=== PATIENT | male | born 1960 | race Two or more races ===

== ENCOUNTER 2019-09-05 12:00 | Inpatient (IN) | payer MEDICAID ==
[~2019-09-05] VITALS: Ht 167.6 cm; Wt 83.9 kg
[2019-09-05 12:21] VITALS: BP 150/70
--- NOTE | 2019-09-05 12:23 | NUR ---
ED Nurse Note: Patient walked in to ER from Dr. Molina's office due to rectal pain 06/12 since yesterday. pt went to Dr. Molina's office for evaluation but the doctor recommanded pt to come in to ER due to lack of equipments there. pt aao x4 and ambulatory. no visible abscess noted in rectal area. pt calm and cooperative. skin clean and intact. no cardiac or pulmonary distress noted at this moment. pt is in gown and on supervisor plastics.
[2019-09-05] MEDS ORDERED: ATORVASTATIN CA80 MG ORAL (12:32)
[2019-09-05] MEDS ORDERED: GLIMEPIRIDE4 MG ORAL (12:32)
[2019-09-05] MEDS ORDERED: JENTADUETO 2.51 EAC2 PO (12:32)
[2019-09-05] MEDS ORDERED: FARXIGA10 MG PO (12:32)
[2019-09-05] MEDS ORDERED: LISINOPRIL5 MG ORAL (12:32)
--- NOTE | 2019-09-05 12:49 | NUR ---
ED Nurse Note: ERMD at bedside.
[2019-09-05] MEDS ORDERED: Omnipaque-300 100ml vial INJ PRN (13:00)
[2019-09-05] MEDS ORDERED: Morphine Sulfate 4mg/ml Inj (IV USE ONLY) IVP ONE ×2 (13:00→13:45)
[2019-09-05 13:14] LABS: BASOPHILS % (AUTO) 0.5 % (0.0-2.0); EOSINOPHILS % (AUTO) 0.3 % (0.0-3.0); HEMATOCRIT 43.6 % (42.0-52.0); HEMOGLOBIN 14.7 G/DL (14.2-18.0); LYMPHOCYTES % (AUTO) 9.5 % (20.0-45.0); MEAN CORPUSCULAR VOLUME 91 FL (80-99); MONOCYTES % (AUTO) 5.7 % (1.0-10.0); PLATELET COUNT 191 K/UL (150-450); RED CELL DISTRIBUTION WIDTH 10.8 % (11.6-14.8); WHITE BLOOD COUNT 11.6 K/UL (4.8-10.8)
[2019-09-05 13:20] LABS: INR 0.9 (0.9-1.1)
[2019-09-05 13:25] LABS: ANION GAP 11 mmol/L (5-15); BLOOD UREA NITROGEN 16 mg/dL (7-18); CALCIUM 8.6 MG/DL (8.5-10.1); CARBON DIOXIDE 27 MMOL/L (21-32); CHLORIDE 100 MMOL/L (98-107); CREATININE 0.8 MG/DL (0.55-1.30); POTASSIUM 3.9 MMOL/L (3.5-5.1); SODIUM 138 MMOL/L (136-145)
[2019-09-05 13:38] LABS: ALANINE AMINOTRANSFERASE 73 U/L (12-78); ALBUMIN 3.3 G/DL (3.4-5.0); ALBUMIN/GLOBULIN RATIO 0.8 (1.0-2.7); ALKALINE PHOSPHATASE 124 U/L (46-116); ASPARTATE AMINO TRANSFERASE 18 U/L (15-37); BILIRUBIN,TOTAL 0.8 MG/DL (0.2-1.0); CREATINE KINASE 83 U/L (26-308)
--- NOTE | 2019-09-05 13:38 | Diagnostic Imaging Report ---
Indication: Wrist pain Technique: XRAY Chest 1v Comparison: None Findings: Lung volumes are low. Patient is rotated to the right. Heart size and mediastinal contours within normal limits allowing for low lung volumes and patient rotation. There is streaky opacities at the bases favored to be related to expiratory atelectatic changes. No radiographically appreciable pleural effusion or pneumothorax. There are degenerative changes in the spine. No acute osseous abnormality. Impression: Low lung volumes with streaky opacities at the bases favored to be related to atelectatic changes. Correlate clinically to exclude the possibility of pneumonia.
--- NOTE | 2019-09-05 13:40 | Emergency Room Report ---
History of Present Illness General Chief Complaint: Skin Rash/Abscess Source: Patient Present Illness HPI Patient presents with several days of rectal pain. He has had fevers and chills. He is having difficulty moving his bowels because of the pain. He denies dysuria. No upper respiratory symptoms or cough. He denies chest pain. The patient was seen by his primary physician and sent for consideration of perirectal abscess. He denies perineal pain. The pain is rated 10/10 in his rectum. It radiates minimally to his abdomen. It is constant but worse when he tries to move his bowels. It is aching and pressure. The patient is diabetic and has some polyuria and polydipsia. History of hypertension. The patient denies skin rashes. Allergies: Coded Allergies: No Known Allergies (Unverified , 09/05/19) Patient History Past Medical History: see triage record Social History: Denies: smoking, alcohol use, drug use Social History Narrative Reviewed Nursing Documentation: PMH: Agreed; PSxH: Agreed Nursing Documentation-PMH Past Medical History: No History, Except For Hx Diabetes: Yes Review of Systems All Other Systems: negative except mentioned in HPI Physical Exam Vital Signs Date Time Temp Pulse Resp B/P (MAP) Pulse Ox O2 Delivery O2 Flow Rate FiO2 09/05/19 12:09 98.4 80 17 141/79 (99) 98 Room Air Sp02 EP Interpretation: reviewed, normal General Appearance: well appearing, no apparent distress, GCS 15, non-toxic Head: normocephalic Eyes: bilateral eye normal inspection, bilateral eye PERRL ENT: moist mucus membranes Neck: supple Respiratory: lungs clear, normal breath sounds Cardiovascular #1: regular rate, rhythm Cardiovascular #2: 2+ radial (R) Gastrointestinal: normal inspection, normal bowel sounds, non tender, no mass, non-distended Rectal: other - no prostate pain Genitourinary: no CVA tenderness Musculoskeletal: back normal, normal range of motion, gait/station normal Neurologic: alert, oriented x3, grossly normal Psychiatric: mood/affect normal Skin: no rash, warm/dry Medical Decision Making Diagnostic Impression: Primary Impression: Perirectal abscess Additional Impression: Diabetes Qualified Codes: E11.9 - Type 2 diabetes mellitus without complications; Z79.4 - intermediate project manager (current) use of insulin ER Course Patient presents with rectal pain with history of physical and chills. Based on his exam clinically has perirectal abscess. NS, pain medicine and antibiotics indicated. EKG normal. CXR no infiltrate. Elevated WBC. Elevated glucose. CT with perianal abscess. Repeat morphine. Repeat accucheck after bolus. Pain improved with treatment. Discussed results and treatment plan with family and patient. Contact Dr. Tyson and Elder for admission and consultation. Laboratory Tests Test 09/05/19 13:00 09/05/19 13:24 White Blood Count 11.6 K/UL (4.8-10.8) H Red Blood Count 4.80 M/UL (4.70-6.10) Hemoglobin 14.7 G/DL (14.2-18.0) Hematocrit 43.6 % (42.0-52.0) Mean Corpuscular Volume 91 FL (80-99) Mean Corpuscular Hemoglobin 30.6 PG (27.0-31.0) Mean Corpuscular Hemoglobin Concent 33.7 G/DL (32.0-36.0) Red Cell Distribution Width 10.8 % (11.6-14.8) L Platelet Count 191 K/UL (150-450) Mean Platelet Volume 10.0 FL (6.5-10.1) Neutrophils (%) (Auto) 84.0 % (45.0-75.0) H Lymphocytes (%) (Auto) 9.5 % (20.0-45.0) L Monocytes (%) (Auto) 5.7 % (1.0-10.0) Eosinophils (%) (Auto) 0.3 % (0.0-3.0) Basophils (%) (Auto) 0.5 % (0.0-2.0) Prothrombin Time 10.0 SEC (9.30-11.50) Prothrombin Time INR 0.9 (0.9-1.1) PTT 28 SEC (23-33) Sodium Level 138 MMOL/L (136-145) Potassium Level 3.9 MMOL/L (3.5-5.1) Chloride Level 100 MMOL/L (98-107) Carbon Dioxide Level 27 MMOL/L (21-32) Anion Gap 11 mmol/L (5-15) Blood Urea Nitrogen 16 mg/dL (7-18) Creatinine 0.8 MG/DL (0.55-1.30) Estimate Glomerular Filtration Rate > 60 mL/min (>60) Glucose Level 322 MG/DL (74-106) H Lactic Acid Level 1.80 mmol/L (0.4-2.0) Calcium Level 8.6 MG/DL (8.5-10.1) Total Bilirubin 0.8 MG/DL (0.2-1.0) Aspartate Amino Transferase (AST) 18 U/L (15-37) Alanine Aminotransferase (ALT) 73 U/L (12-78) Alkaline Phosphatase 124 U/L (46-116) H Total Creatine Kinase 83 U/L (26-308) Troponin I 0.000 ng/mL (0.000-0.056) Pro-B-Type Natriuretic Peptide 376 pg/mL (0-125) H Total Protein 7.7 G/DL (6.4-8.2) Albumin 3.3 G/DL (3.4-5.0) L Globulin 4.4 g/dL Albumin/Globulin Ratio 0.8 (1.0-2.7) L Lipase 178 U/L (73-393) Urine Color Pale yellow Urine Appearance Clear Urine pH 6.5 (4.5-8.0) Urine Specific [place] 1.005 (1.005-1.035) Urine Protein Negative (NEGATIVE) Urine Glucose (UA) 4+ (NEGATIVE) H Urine Ketones Negative (NEGATIVE) Urine Blood Negative (NEGATIVE) Urine Nitrite Negative (NEGATIVE) Urine Bilirubin Negative (NEGATIVE) Urine Urobilinogen Normal MG/DL (0.0-1.0) Urine Leukocyte Esterase Negative (NEGATIVE) EKG Diagnostic Results Rate: normal Rhythm: NSR ST Segments: no acute changes Rhythm Strip Diag. Results EP Interpretation: yes Rhythm: NSR, no PVC's, no ectopy Chest X-Ray Diagnostic Results Chest X-Ray Diagnostic Results : Chest X-Ray Ordered: Yes # of Views/Limited/Complete: 1 View Indication: Other EP Interpretation: Yes Interpretation: no consolidation, no effusion, no pneumothorax Impression: No acute disease Electronically Signed by: Electronically signed by Roman Messer MD CT/MRI/US Diagnostic Results CT/MRI/US Diagnostic Results : Imaging Test Ordered: abd/pelvis Impression * Perianal abscess measuring approximately 1.7 x 1.9 x 1.5 cm. Etiology is uncertain (recognized associations include diabetes, Crohn's disease, trauma, anorectal cancer). Clinical correlation and follow-up recommended. * 2.5 x 1.7 cm heterogeneously enhancing solid mass in the right kidney. Renal cell carcinoma can be considered. Urology consult/follow-up recommended. Last Vital Signs Date Time Temp Pulse Resp B/P (MAP) Pulse Ox O2 Delivery O2 Flow Rate FiO2 09/05/19 21:35 Room Air 09/05/19 21:20 100.0 09/05/19 20:49 74 18 127/84 (98) 97 Status: improved Disposition: ADMITTED INPATIENT Condition: Serious Referrals: NOT CHOSEN IPA/,REFERRING (PCP) Roman Messer MD Sep 05, 2019 13:40
[2019-09-05] MEDS ORDERED: Vancomycin 1 GM in NS 275 ML IVPB ONE ×2 (13:45→14:15)
[2019-09-05 13:52] LABS: APPEARANCE,URINE CLEAR; BILIRUBIN, URINE NEGATIVE (NEGATIVE); COLOR,URINE PALE YELLOW; GLUCOSE, URINE (UA) 4+ (NEGATIVE); KETONES,URINE NEGATIVE (NEGATIVE); LEUKOCYTE ESTERASE ,URINE NEGATIVE (NEGATIVE); NITRITE,URINE NEGATIVE (NEGATIVE); PH,URINE 6.5 (4.5-8.0); PROTEIN,URINE NEGATIVE (NEGATIVE); UROBILINOGEN,URINE NORMAL MG/DL (0.0-1.0)
--- NOTE | 2019-09-05 13:52 | NUR ---
ED Nurse Note: Pt still in 8/10 pain after 4 mg morphine. EDMD ordered second dose; verified with EDMD that it was safe to give. Administered medication. Vital signs stable as documented. Pt in CT.
--- NOTE | 2019-09-05 14:10 | NUR ---
ED Nurse Note: Pt back from CT
--- NOTE | 2019-09-05 14:49 | NUR ---
ED Nurse Note: Report given to TOD Morales on 4E
--- NOTE | 2019-09-05 14:57 | Diagnostic Imaging Report ---
Indication: Elbow pain. Possible perirectal or perianal abscess. Technique: CT of the abdomen and pelvis utilizing automated exposure control with intravenous contrast. Venous scanning performed. Axial, sagittal and coronal reformats presented. CT dose: Total DLP 1700.8 mGycm; CTDI vol 24.2 mGy Comparison: None Findings: Dependent atelectatic changes noted in the lung bases. Partially imaged heart appears normal in size. There is no pericardial effusion. Liver contour is smooth. No focal hepatic mass lesion appreciated on this single phase exam. Hepatic veins and portal veins appear patent. There are no CT evident gallstones or pericholecystic inflammatory changes. No biliary ductal dilatation. Spleen, adrenal glands and pancreas unremarkable in appearance. No peripancreatic inflammatory changes or fluid collections. Multiple well-circumscribed low-attenuation lesions are noted in the bilateral kidneys compatible with cysts. Additional lesions are too small for definitive characterization. There is a parapelvic cyst in the left kidney. Within the right kidney there is a 2.5 x 1.7 cm heterogeneously enhancing solid mass which deforms the contour. This is concerning for a neoplasm. Renal cell carcinoma is not excluded. Urology referral/follow-up recommended. There is no urinary tract stone or hydronephrosis. Bladder is mildly distended but otherwise unremarkable. Seminal vesicles and prostate grossly unremarkable. There is no free intraperitoneal air or fluid. There is no evidence of small bowel obstruction or inflammatory stranding within the mesentery. The appendix is normal. No periappendiceal inflammatory stranding. Adjacent to the anus there is a small septated fluid collection which measures approximately 1.7 cm craniocaudal by 1.9 cm transverse by 1.5 cm AP (coronal series image #47). There is adjacent inflammatory stranding. The abdominal aorta is normal in caliber. No pathologically enlarged lymphadenopathy is identified. There are mild degenerative changes of the spine. No acute fracture is identified. No destructive lytic or sclerotic bone lesion is seen. IMPRESSION: * Perianal abscess measuring approximately 1.7 x 1.9 x 1.5 cm. Etiology is uncertain (recognized associations include diabetes, Crohn's disease, trauma, anorectal cancer). Clinical correlation and follow-up recommended. * 2.5 x 1.7 cm heterogeneously enhancing solid mass in the right kidney. Renal cell carcinoma can be considered. Urology consult/follow-up recommended. Additional findings as above. The CT scanner at [facility] is accredited by the [employer] and the scans are performed using protocols designed to limit radiation exposure to as low as reasonably achievable to attain images of sufficient resolution adequate for diagnostic evaluation.
--- NOTE | 2019-09-05 15:13 | NUR ---
ED Nurse Note: Patient and wish to speak to doctor regarding admission. ARLENE made aware.
--- NOTE | 2019-09-05 15:28 | NUR ---
ED Nurse Note: pt left unit with 1 technical programs manager in stable condition.
--- NOTE | 2019-09-05 16:02 | NUR ---
NURSE NOTES: pt awake alert, oriented, pashto speaking , limited romanian, sacral intact, pt seen by dr Tyson and dr Friedman. made aware of 100.1 temp at this time. pt currently on vanco at this time. rac 20 intact. pt ambulatory , continent. Addendum: 09/05/19 at 1604 by ALLEN CHIANG RN per dr Tyson he will put orders in
[2019-09-05 16:03] VITALS: BP 145/75
[2019-09-05] MEDS ORDERED: Miralax 17gm pkt ORAL PRN (16:15)
[2019-09-05] MEDS ORDERED: HYDROcodone/Acetamin 7.5/325 tab ORAL PRN (16:15)
[2019-09-05] MEDS ORDERED: Sennosides 8.6mg tab ORAL PRN (16:15)
[2019-09-05] MEDS ORDERED: Zolpidem 5mg tab ORAL PRN (16:15)
--- NOTE | 2019-09-05 16:41 | Consultation ---
History of Present Illness General Date patient seen: Sep 05, 2019 Reason for Hospitalization: Skin Rash/Abscess Present Illness HPI 59M with pmhx of DM presented with 4 day history of perianal pain. no n/v/f/c. pain 8/10 perianal and worse with BM. in ED noted to have wbc and CT as below. admitted and surgery called to evaluate.patient seen, chart reviewed, patient examined. Allergies: Coded Allergies: No Known Allergies (Unverified , 09/05/19) Medication History Scheduled Atorvastatin Calcium* (Lipitor*), 80 MG ORAL BEDTIME, (Reported) Glimepiride* (Glimepiride*), 4 MG ORAL BEFORE BREAKFAST, (Reported) Lisinopril (Lisinopril*), 5 MG ORAL DAILY, (Reported) Miscellaneous Medications Dapagliflozin Propanediol (Farxiga), 10 MG PO, (Reported) Linagliptin/Metformin Hcl (Jentadueto 2.5 Mg-1000 Mg Tab), 1 EACH PO, (Reported) Patient History History Provided By: Patient, Family Member, Medical Record, PMD Healthcare decision maker Resuscitation status Advanced Directive on File Past Medical/Surgical History Past Medical/Surgical History: (1) Diabetes (2) Perirectal abscess Review of Systems Review of Symptoms General ROS: no weight loss or fever Psychological ROS: no depression or mood changes, no memory loss Ophthalmic ROS: no visual changes or eye irritation ENT ROS: no nasal congestion, hearing loss, dizziness Allergy and Immunology ROS: no allergic symptoms or urticaria Hematological and Lymphatic ROS: no swollen glands, unusual bleeding or bruising Endocrine ROS: no polyuria, polydipsia, weight changes, temperature intolerance Respiratory ROS: no cough, shortness of breath, or wheezing Cardiovascular ROS: no chest pain or dyspnea on exertion Gastrointestinal ROS: denies abdominal pain, bright red blood in stool. Musculoskeletal ROS: no myalgias or arthralgias Neurological ROS: no TIA or stroke symptoms Dermatological ROS: no new or changing skin lesions, rashes or pruritis Physical Exam Physical Exam General appearance: alert, cooperative, no distress, appears stated age Head: Normocephalic, without obvious abnormality, atraumatic Eyes: conjunctivae/corneas clear. PERRL, EOM's intact. Fundi benign Throat: Lips, mucosa, and tongue normal. Teeth and gums normal Neck: supple, symmetrical, trachea midline, no adenopathy, thyroid: not enlarged, symmetric, no tenderness/mass/nodules, no carotid bruit and no JVD Lungs: clear to auscultation bilaterally Heart: regular rate and rhythm, S1, S2 normal, no murmur, click, rub or gallop Abdomen: soft, non-tender. Bowel sounds normal. No masses, no organomegaly Extremities: extremities normal, atraumatic, no cyanosis or edema Pulses: 2+ and symmetric Skin: Skin color, texture, turgor normal. No rashes or lesions Neurologic: Grossly normal RECTAL: posterior midline there is an area of induration but no fluctuance. no drainage. cellulitis. tender. Last 24 Hour Vital Signs Date Time Temp Pulse Resp B/P (MAP) Pulse Ox O2 Delivery O2 Flow Rate FiO2 09/05/19 16:03 100.1 80 18 145/75 (98) 98 09/05/19 15:27 98.0 77 19 146/87 99 Room Air 09/05/19 13:40 78 17 Room Air 09/05/19 12:21 98.4 80 17 150/70 98 Room Air 09/05/19 12:09 98.4 80 17 141/79 (99) 98 Room Air Laboratory Tests Test 09/05/19 13:00 09/05/19 13:24 White Blood Count 11.6 K/UL (4.8-10.8) H Red Blood Count 4.80 M/UL (4.70-6.10) Hemoglobin 14.7 G/DL (14.2-18.0) Hematocrit 43.6 % (42.0-52.0) Mean Corpuscular Volume 91 FL (80-99) Mean Corpuscular Hemoglobin 30.6 PG (27.0-31.0) Mean Corpuscular Hemoglobin Concent 33.7 G/DL (32.0-36.0) Red Cell Distribution Width 10.8 % (11.6-14.8) L Platelet Count 191 K/UL (150-450) Mean Platelet Volume 10.0 FL (6.5-10.1) Neutrophils (%) (Auto) 84.0 % (45.0-75.0) H Lymphocytes (%) (Auto) 9.5 % (20.0-45.0) L Monocytes (%) (Auto) 5.7 % (1.0-10.0) Eosinophils (%) (Auto) 0.3 % (0.0-3.0) Basophils (%) (Auto) 0.5 % (0.0-2.0) Prothrombin Time 10.0 SEC (9.30-11.50) Prothromb Time International Ratio 0.9 (0.9-1.1) Activated Partial Thromboplast Time 28 SEC (23-33) Sodium Level 138 MMOL/L (136-145) Potassium Level 3.9 MMOL/L (3.5-5.1) Chloride Level 100 MMOL/L (98-107) Carbon Dioxide Level 27 MMOL/L (21-32) Anion Gap 11 mmol/L (5-15) Blood Urea Nitrogen 16 mg/dL (7-18) Creatinine 0.8 MG/DL (0.55-1.30) Estimat Glomerular Filtration Rate > 60 mL/min (>60) Glucose Level 322 MG/DL (74-106) H Lactic Acid Level 1.80 mmol/L (0.4-2.0) Calcium Level 8.6 MG/DL (8.5-10.1) Total Bilirubin 0.8 MG/DL (0.2-1.0) Aspartate Amino Transf (AST/SGOT) 18 U/L (15-37) Alanine Aminotransferase (ALT/SGPT) 73 U/L (12-78) Alkaline Phosphatase 124 U/L (46-116) H Total Creatine Kinase 83 U/L (26-308) Troponin I 0.000 ng/mL (0.000-0.056) Pro-B-Type Natriuretic Peptide 376 pg/mL (0-125) H Total Protein 7.7 G/DL (6.4-8.2) Albumin 3.3 G/DL (3.4-5.0) L Globulin 4.4 g/dL Albumin/Globulin Ratio 0.8 (1.0-2.7) L Lipase 178 U/L (73-393) Urine Color Pale yellow Urine Appearance Clear Urine pH 6.5 (4.5-8.0) Urine Specific [place] 1.005 (1.005-1.035) Urine Protein Negative (NEGATIVE) Urine Glucose (UA) 4+ (NEGATIVE) H Urine Ketones Negative (NEGATIVE) Urine Blood Negative (NEGATIVE) Urine Nitrite Negative (NEGATIVE) Urine Bilirubin Negative (NEGATIVE) Urine Urobilinogen Normal MG/DL (0.0-1.0) Urine Leukocyte Esterase Negative (NEGATIVE) Height (Feet): 5 Height (Inches): 6.00 Weight (Pounds): 185 Medications Current Medications Medications (Trade) Dose Ordered Sig/Marybel Route PRN Reason Start Time Stop Time Status Last Admin Dose Admin Acetaminophen (Tylenol) 650 mg Q4H PRN ORAL Mild Pain (Pain Scale 1-3) 09/05/19 16:15 10/05/19 16:14 Acetaminophen (Tylenol) 650 mg Q4H PRN ORAL fever 09/05/19 16:15 10/05/19 16:14 Acetaminophen/ Hydrocodone Bitart ([place] 5/325) 1 tab Q4H PRN ORAL Moderate Pain (Pain Scale 4-6) 09/05/19 16:15 09/12/19 16:14 Acetaminophen/ Hydrocodone Bitart ([place] 7.5/325) 1 tab Q4H PRN ORAL severe pain 09/05/19 16:15 09/12/19 16:14 Dextrose (Dextrose 50%) 25 ml Q30M PRN IV Hypoglycemia 09/05/19 16:15 10/05/19 16:14 Dextrose (Dextrose 50%) 50 ml Q30M PRN IV Hypoglycemia 09/05/19 16:15 10/05/19 16:14 Docusate Sodium (Colace) 100 mg EVERY 12 HOURS ORAL 09/05/19 17:00 10/05/19 16:59 Heparin Sodium (Porcine) (Heparin 5000 units/ml) 5,000 units EVERY 8 HOURS SUBQ 09/05/19 22:00 10/05/19 21:59 Iohexol (OMNIPAQUE-300 100ml) 100 ml NOW PRN INJ Radiology Procedure 09/05/19 13:00 09/07/19 12:53 Ondansetron HCl (Zofran) 4 mg Q6H PRN IVP Nausea & Vomiting 09/05/19 16:15 10/05/19 16:14 Piperacillin Sod/ Tazobactam Sod 3.375 gm/Sodium Chloride 110 ml @ 27.5 mls/hr EVERY 8 HOURS IVPB 09/05/19 22:00 09/10/19 21:59 Polyethylene Glycol (Miralax) 17 gm HSPRN PRN ORAL Constipation 09/05/19 16:15 10/05/19 16:14 Sennosides (Senokot) 8.6 mg DAILYPRN PRN ORAL Constipation 09/05/19 16:15 10/05/19 16:14 Sodium Chloride 1,000 ml @ 300 mls/hr Q3H20M IV 09/05/19 13:00 10/05/19 12:59 09/05/19 13:22 Zolpidem Tartrate (Ambien) 5 mg HSPRN PRN ORAL Insomnia 09/05/19 16:15 09/12/19 16:14 Assessment/Plan Problem List: (1) Perirectal abscess Assessment & Plan: * Perianal abscess measuring approximately 1.7 x 1.9 x 1.5 cm. Etiology is uncertain (recognized associations include diabetes, Crohn's disease, trauma, anorectal cancer). Clinical correlation and follow-up recommended. small abscess perianal. on exam mainly induration no fluctuance. CT reviewed will being with medical therapy IV ABX. may resolve with conservative treatment. if not improving may require surgery will monitor closely with exam thank you ICD Codes: K61.1 - Rectal abscess SNOMED: [id number] Bryan Friedman Sep 05, 2019 16:41
[2019-09-05] MEDS: Docusate 100mg cap ORAL SCH (16:46)
--- NOTE | 2019-09-05 19:19 | NUR ---
HAND-OFF: Report given to LIDYA BARON.
--- NOTE | 2019-09-05 19:46 | NUR ---
NURSE NOTES: Received patient in bed, ambulatory with steady gate, awake, alert, Thai speaking only, IV site is dry clean and intact. Call light is within reach, bed is lowered, locked, alarm is on. Will continue to monitor for comfort and safety.
[2019-09-05 20:49] VITALS: BP 127/84
[2019-09-05] MEDS: Piperacillin/Tazobactam 3.375 GM in NS 110 ML IVPB SCH (20:50)
--- NOTE | 2019-09-05 21:15 | History and Physical Report ---
DATE OF ADMISSION: 09/04/2019 CHIEF COMPLAINT AND REASON FOR HOSPITALIZATION: The patient is a 59-year-old man, admitted with rectal pain. HISTORY OF PRESENT ILLNESS: The patient has a history of diabetes, hypertension, hyperlipidemia, has generally been in good health, has not been hospitalized. He presents with rectal pain and says he is not eating the last 2 days because it is too painful to pass a bowel movement. He is found to have induration and a perirectal abscess. The patient has had no fever or chills. He was seen in the emergency and sent to the floor. ALLERGIES: None known. MEDICATIONS: Include atorvastatin, Farxiga, glimepiride, Jentadueto, and lisinopril. It is not clear if this is an accurate record. Family bring in the medications. HABITS: He is a moderate alcohol drinker on occasions, not daily. He is a nonsmoker. No drugs. SOCIAL HISTORY: He has worked as a typing teacher. He is currently on vacation. PAST SURGICAL HISTORY: None. SYSTEM REVIEW: HEAD, EYES, EARS, NOSE, AND THROAT: Vision and hearing is good. ENDOCRINE: No history of diabetes. No known thyroid disease. PULMONARY: No asthma, TB, or chronic cough. CARDIAC: No angina, [place], or palpitations. GASTROINTESTINAL: No GI bleeding or ulcers. GENITOURINARY: No dysuria, hematuria, kidney stones. NEUROLOGIC: No CVA, syncope, or seizures. PHYSICAL EXAMINATION: GENERAL: The patient is a well-developed man, in no acute distress. VITAL SIGNS: Temperature 100.1, pulse 80, respirations 18, blood pressure 145/75, pulse ox 98. HEAD, EYES, EARS, NOSE, AND THROAT: Sclerae are nonicteric. Ocular motions intact in all directions. Oral mucosa moist. NECK: No adenopathy. LUNGS: Clear. HEART: Regular rhythm. No murmur. ABDOMEN: Soft without organomegaly or masses. GENITOURINARY: Penis and testes normal. RECTAL: I was there when it was done by Dr. Friedman, who noted severe induration in the perirectal area and quite tender. The buttocks themselves do not have abscess. EXTREMITIES: No edema, cyanosis, or clubbing. NEUROLOGIC: He is alert and oriented. Cranial nerves are intact. PERTINENT LABORATORY DATA: White count 11.6, hemoglobin 14.7. Electrolytes normal. Glucose is 322. IMPRESSION: 1. Perirectal abscess. 2. Adult onset diabetes. 3. History of hypertension. 4. History of hyperlipidemia. PLAN: The patient will have broad-spectrum antibiotics and comfort measures. Monitor his diabetes, adjust medication, and Dr. Friedman will reassess for the necessity of surgery versus conservative care. Leonides Tyson M.D. DR: KEMAL JOB#: [id number] CC:
[2019-09-05] MEDS: Heparin 5000 units/ml inj SUBQ SCH (22:00)
[2019-09-06 00:08] VITALS: BP 126/74
[2019-09-06] MEDS: Piperacillin/Tazobactam 3.375 GM in NS 110 ML IVPB SCH (05:07)
[2019-09-06] MEDS: HYDROcodone/Acetamin 5/325 tab ORAL PRN ×2 (05:07→09:12)
[2019-09-06] MEDS: Heparin 5000 units/ml inj SUBQ SCH (05:08)
--- NOTE | 2019-09-06 07:17 | NUR ---
HAND-OFF: Report given to Reyna BARON.
--- NOTE | 2019-09-06 07:20 | NUR ---
NURSE NOTES: Received report from TOD Galvez (Rita). Patient A&Ox4, Surinamese speaking. On room air, no signs of distress or labored breathing. IV intact, patent, and infusing IV antibiotics. Bed in lowest position with call light in reach. Will continue with plan of care.
[2019-09-06 08:00] VITALS: BP 120/68
[2019-09-06 08:23] LABS: BASOPHILS % (AUTO) 0.5 % (0.0-2.0); EOSINOPHILS % (AUTO) 0.7 % (0.0-3.0); HEMATOCRIT 39.1 % (42.0-52.0); HEMOGLOBIN 13.7 G/DL (14.2-18.0); LYMPHOCYTES % (AUTO) 12.3 % (20.0-45.0); MEAN CORPUSCULAR VOLUME 92 FL (80-99); MONOCYTES % (AUTO) 6.2 % (1.0-10.0); NEUTROPHILS % (AUTO) 80.2 % (45.0-75.0); PLATELET COUNT 181 K/UL (150-450); RED BLOOD COUNT 4.27 M/UL (4.70-6.10); RED CELL DISTRIBUTION WIDTH 11.1 % (11.6-14.8); WHITE BLOOD COUNT 12.9 K/UL (4.8-10.8)
[2019-09-06] MEDS: Docusate 100mg cap ORAL SCH (09:12)
[2019-09-06 09:23] LABS: ALANINE AMINOTRANSFERASE 57 U/L (12-78); ALBUMIN/GLOBULIN RATIO 0.7 (1.0-2.7); ALKALINE PHOSPHATASE 103 U/L (46-116); ANION GAP 13 mmol/L (5-15); ASPARTATE AMINO TRANSFERASE 19 U/L (15-37); BILIRUBIN,TOTAL 0.9 MG/DL (0.2-1.0); BLOOD UREA NITROGEN 17 mg/dL (7-18); CALCIUM 8.6 MG/DL (8.5-10.1); CARBON DIOXIDE 25 MMOL/L (21-32); CHLORIDE 102 MMOL/L (98-107); CREATININE 0.7 MG/DL (0.55-1.30); POTASSIUM 3.6 MMOL/L (3.5-5.1); SODIUM 140 MMOL/L (136-145)
[2019-09-06 12:00] VITALS: BP 114/71
[2019-09-06] MEDS ORDERED: CEPHALEXIN500 MG ORAL (12:17)
[2019-09-06] MEDS ORDERED: Lidocaine 1% 10mg/ml/EPI 0.01mg/ml 30ml INJ SCH (12:30)
--- NOTE | 2019-09-06 12:51 | Surgery Progress Note ---
Surgery Progress Note Subjective Symptoms: improved, tolerating diet, voiding well, passing flatus, pain decreased Additional Comments patient seen and examined at bedside. states pain improved today. yesterday throbbing pain now only with palpation. no n/v/f/c. feels better wbc 12k exam stable / improved discussed care plan with patient. offered I&D vs cont medical tx. patient states he does not want I&D at this time and would prefer to attempt medical tx with abx given improvement over the last 24hrs. we discussed risks, benefits, and possibilities and he expressed understanding. states if not improved on abx will return of if worsening will return. states has to be back at work soon and would rather attempt medical therapy understanding may fail abx therapy requiring I&D later plan d/c on oral abx outpatient follow up thank you Objective Last 24 Hour Vital Signs Date Time Temp Pulse Resp B/P (MAP) Pulse Ox O2 Delivery O2 Flow Rate FiO2 09/06/19 05:40 99.3 09/06/19 00:08 99.3 74 18 126/74 (91) 98 09/05/19 21:35 Room Air 09/05/19 21:20 100.0 09/05/19 20:49 101.3 74 18 127/84 (98) 97 09/05/19 16:04 Room Air 09/05/19 16:03 100.1 80 18 145/75 (98) 98 09/05/19 15:27 98.0 77 19 146/87 99 Room Air 09/05/19 13:40 78 17 Room Air I&O Intake and Output 09/05/19 09/06/19 19:00 07:00 Intake Total 2115 ml Balance 2115 ml Intake Oral 240 ml IV Total 1875 ml # Voids 1 Dressing: dry Wound: clean Cardiovascular: RSR Respiratory: clear Abdomen: soft, flat, non-tender, present bowel sounds, non-distended Extremities: no edema, no tenderness, no cyanosis Laboratory Tests Test 09/05/19 13:00 09/05/19 13:24 09/06/19 06:00 White Blood Count 11.6 K/UL (4.8-10.8) H 12.9 K/UL (4.8-10.8) H Red Blood Count 4.80 M/UL (4.70-6.10) 4.27 M/UL (4.70-6.10) L Hemoglobin 14.7 G/DL (14.2-18.0) 13.7 G/DL (14.2-18.0) L Hematocrit 43.6 % (42.0-52.0) 39.1 % (42.0-52.0) L Mean Corpuscular Volume 91 FL (80-99) 92 FL (80-99) Mean Corpuscular Hemoglobin 30.6 PG (27.0-31.0) 32.1 PG (27.0-31.0) H Mean Corpuscular Hemoglobin Concent 33.7 G/DL (32.0-36.0) 35.0 G/DL (32.0-36.0) Red Cell Distribution Width 10.8 % (11.6-14.8) L 11.1 % (11.6-14.8) L Platelet Count 191 K/UL (150-450) 181 K/UL (150-450) Mean Platelet Volume 10.0 FL (6.5-10.1) 10.2 FL (6.5-10.1) H Neutrophils (%) (Auto) 84.0 % (45.0-75.0) H 80.2 % (45.0-75.0) H Lymphocytes (%) (Auto) 9.5 % (20.0-45.0) L 12.3 % (20.0-45.0) L Monocytes (%) (Auto) 5.7 % (1.0-10.0) 6.2 % (1.0-10.0) Eosinophils (%) (Auto) 0.3 % (0.0-3.0) 0.7 % (0.0-3.0) Basophils (%) (Auto) 0.5 % (0.0-2.0) 0.5 % (0.0-2.0) Prothrombin Time 10.0 SEC (9.30-11.50) 10.3 SEC (9.30-11.50) Prothromb Time International Ratio 0.9 (0.9-1.1) 1.0 (0.9-1.1) Activated Partial Thromboplast Time 28 SEC (23-33) 32 SEC (23-33) Sodium Level 138 MMOL/L (136-145) 140 MMOL/L (136-145) Potassium Level 3.9 MMOL/L (3.5-5.1) 3.6 MMOL/L (3.5-5.1) Chloride Level 100 MMOL/L (98-107) 102 MMOL/L (98-107) Carbon Dioxide Level 27 MMOL/L (21-32) 25 MMOL/L (21-32) Anion Gap 11 mmol/L (5-15) 13 mmol/L (5-15) Blood Urea Nitrogen 16 mg/dL (7-18) 17 mg/dL (7-18) Creatinine 0.8 MG/DL (0.55-1.30) 0.7 MG/DL (0.55-1.30) Estimat Glomerular Filtration Rate > 60 mL/min (>60) > 60 mL/min (>60) Glucose Level 322 MG/DL (74-106) H 141 MG/DL (74-106) #H Lactic Acid Level 1.80 mmol/L (0.4-2.0) Calcium Level 8.6 MG/DL (8.5-10.1) 8.6 MG/DL (8.5-10.1) Total Bilirubin 0.8 MG/DL (0.2-1.0) 0.9 MG/DL (0.2-1.0) Aspartate Amino Transf (AST/SGOT) 18 U/L (15-37) 19 U/L (15-37) Alanine Aminotransferase (ALT/SGPT) 73 U/L (12-78) 57 U/L (12-78) Alkaline Phosphatase 124 U/L (46-116) H 103 U/L (46-116) Total Creatine Kinase 83 U/L (26-308) Troponin I 0.000 ng/mL (0.000-0.056) Pro-B-Type Natriuretic Peptide 376 pg/mL (0-125) H Total Protein 7.7 G/DL (6.4-8.2) 7.1 G/DL (6.4-8.2) Albumin 3.3 G/DL (3.4-5.0) L 3.0 G/DL (3.4-5.0) L Globulin 4.4 g/dL 4.1 g/dL Albumin/Globulin Ratio 0.8 (1.0-2.7) L 0.7 (1.0-2.7) L Lipase 178 U/L (73-393) Urine Color Pale yellow Urine Appearance Clear Urine pH 6.5 (4.5-8.0) Urine Specific [place] 1.005 (1.005-1.035) Urine Protein Negative (NEGATIVE) Urine Glucose (UA) 4+ (NEGATIVE) H Urine Ketones Negative (NEGATIVE) Urine Blood Negative (NEGATIVE) Urine Nitrite Negative (NEGATIVE) Urine Bilirubin Negative (NEGATIVE) Urine Urobilinogen Normal MG/DL (0.0-1.0) Urine Leukocyte Esterase Negative (NEGATIVE) Erythrocyte Sedimentation Rate 39 MM/HR (0-20) H C-Reactive Protein, Quantitative 13.1 mg/dL (0.00-0.90) H Additional Comments perianal cellulitis posterior improved Plan Problems: (1) Perirectal abscess Assessment & Plan: * Perianal abscess measuring approximately 1.7 x 1.9 x 1.5 cm. Etiology is uncertain (recognized associations include diabetes, Crohn's disease, trauma, anorectal cancer). Clinical correlation and follow-up recommended. small abscess perianal. on exam mainly induration no fluctuance. CT reviewed will being with medical therapy IV ABX. may resolve with conservative treatment. if not improving may require surgery exam stable / improved discussed care plan with patient. offered I&D vs cont medical tx. patient states he does not want I&D at this time and would prefer to attempt medical tx with abx given improvement over the last 24hrs. we discussed risks, benefits, and possibilities and he expressed understanding. states if not improved on abx will return of if worsening will return. states has to be back at work soon and would rather attempt medical therapy understanding may fail abx therapy requiring I&D later plan d/c on oral abx outpatient follow up thank you will monitor closely with exam thank you Bryan Friedman Sep 06, 2019 12:51
--- NOTE | 2019-09-06 14:10 | NUR ---
NURSE NOTES: Patient discharged home via private vehicle. Discharge protocol followed. Patient in stable condition. Charge nurse aware.
--- NOTE | 2019-09-09 08:04 | Discharge Summary ---
Discharge Summary Discharge Summary _ DATE OF ADMISSION: 09/05/2019 DATE OF DISCHARGE: 09/06/2019 DISCHARGED BY: Dr. Tyson REASON FOR ADMISSION: 59 years old male with past medical history of diabetes mellitus, hypertension, hyperlipidemia, presented with rectal pain. Patient reported that he was not eating for 2 days since it was too painful to have a bowel movement. No fever no chills were reported. Upon evaluation in emergency department patient was found to have perirectal abscess. Mild leukocytosis WBC 11.6 . Glucose 322 . Lactic acid 1.8. CT of the abdomen and pelvis revealed perianal abscess measuring 1.7 x 1.9 x 1.5 cm. Patient subsequently admitted to medical surgical floor [facility] COURSE: Patient admitted to medical surgical floor. Patient started on broad-spectrum antibiotics. Pain management was addressed. Supportive care provided. Comfort measures were addressed. Surgeon seen and evaluated patient Per surgeon, patient had a small perianal abscess , mainly induration but no fluctuance. Surgeon recommended medical therapy with IV antibiotic. Per surgeon at this time continue with conservative treatment. Plan of care was discussed with the patient , and patient did not want surgical intervention at this time and preferred to try conservative management first. Patient was discharged on oral antibiotic . Outpatient follow-up with a surgeon , and if no improvement may require surgery. Blood pressure and blood sugar were closely monitored . DVT prophylaxis provided. Bowel regimen instituted. Patient was discharged on oral antibiotics to complete the course as outpatient. FINAL DIAGNOSES: Perirectal abscess Adult onset of diabetes Hypertension Hyperlipidemia DISCHARGE MEDICATIONS: See Medication Reconciliation list. DISCHARGE INSTRUCTIONS: Patient was discharged home. Follow-up with the primary care provider. Follow-up with surgeon as outpatient. Complete antibiotic course . I have been assigned to dictate discharge summary for this account. I was not involved in the patient's management. Maria Antonia Conti NP Sep 09, 2019 08:04
--- NOTE | 2019-09-09 09:30 | Discharge Summary ---
DATE OF ADMISSION: 09/05/2019 DATE OF DISCHARGE: 09/06/2019 PERTINENT HISTORY: The patient is a 59-year-old man, admitted with rectal pain. He has a history of diabetes. He was found in the emergency room to have a perirectal abscess. Pertinent physical findings were negative except for induration in the perirectal area. COURSE IN THE HOSPITAL: The patient received empiric antibiotics and his pain markedly improved within 24 hours and he was in no distress. His glucose went from 322 to 141. VITAL SIGNS: On the day of discharge, his vital signs were stable. LUNGS: Clear. HEART: Regular rhythm. ABDOMEN: Soft. He was seen by Dr. Friedman and was felt that he did not need to have an I and D at this time, but if his symptoms progress, it could be done at a later date. He was discharged home in stable condition. FINAL DIAGNOSES: 1. Perirectal abscess. 2. Adult onset diabetes with hyperglycemia. DISCHARGE DISPOSITION: Home on a diabetic diet and his prior to admission medications plus Keflex 500 mg q.i.d. for 10 days. FOLLOWUP: Follow up with his PCP. Leonides Tyson M.D. DR: KEMAL JOB#: [id number] CC:
== END 2019-09-06 14:05 | disposition home or self-care (01) | DRG 395 ==
LOC: EMR 12:50 → 4E 13:14 → EDBEDREQ 14:13
DX: K61.1 Rectal abscess (principal); I10 Essential (primary) hypertension; E78.5 Hyperlipidemia, unspecified; E11.65 Type 2 diabetes mellitus with hyperglycemia
CPT/HCPCS: 36415; 71045; 74177; 80053; 81003; 82550; 82962; 83605; 83690; 83880; 84484; 85025; 85610; 85651; 85730; 86140; 87040; 87081; 93005; 96361; 96365; 96367; 96375; 96376; 99285; J2405; J7030